=== PATIENT | male | born 1965 | race African-American/Black ===

== ENCOUNTER 2017-01-08 18:09 | Emergency (ER) | payer BC ==
[~2017-01-08] VITALS: Ht 188 cm; Wt 99.8 kg
[2017-01-08 19:17] LABS: URINE SOURCE CLEAN CATCH
[2017-01-08 19:23] LABS: URINE APPEARANCE CLOUDY; URINE BILIRUBIN NEG (NEG); URINE BLOOD 1+ (NEG); URINE COLOR YELLOW; URINE GLUCOSE NEG (NEG); URINE KETONE 1+ (NEG); URINE LEUKOCYTE ESTERASE 2+ (NEG); URINE NITRATE NEG (NEG); URINE PH 5.5 (5-8); URINE PROTEIN 1+ (NEG); URINE SPECIFIC GRAVITY 1.026 (1.003-1.035)
[2017-01-08 19:26] LABS: CULTURE INDICATED? YES; URINE SQUAMOUS EPITHELIAL CELL OCC /[HPF]; UWBCS1 AUWI 50-100 (0-5)
[2017-01-08 19:52] LABS: U HYALINE CASTS AUWI 0-2 /[LPF]; URINE BACTERIA AUWI 1+ (NEGATIVE); URINE TRICHOMONAS PRESENT
[2017-01-13 00:05] LABS: CHLAMYDIA TRACH Not Detected (Not Detected); N GONOR Not Detected (Not Detected)
== END 2017-01-08 20:14 | disposition home or self-care (01) ==
LOC: CED 18:09
PROVIDERS: Emergency Medicine
DX: A59.9 Trichomoniasis, unspecified (principal); J45.909 Unspecified asthma, uncomplicated
CPT/HCPCS: 81003; 87086; 87491; 87591; 99283

== ENCOUNTER 2017-01-18 17:44 | Emergency (ER) | payer BC ==
[~2017-01-18] VITALS: Ht 188 cm; Wt 99.8 kg
[2017-01-18 18:05] LABS: URINE SOURCE CLEAN CATCH
[2017-01-18 18:12] LABS: URINE APPEARANCE CLEAR; URINE BILIRUBIN NEG (NEG); URINE BLOOD TRACE (NEG); URINE COLOR YELLOW; URINE GLUCOSE NEG (NEG); URINE KETONE TRACE (NEG); URINE LEUKOCYTE ESTERASE 2+ (NEG); URINE NITRATE NEG (NEG); URINE PROTEIN NEG (NEG); URINE SPECIFIC GRAVITY 1.027 (1.003-1.035)
[2017-01-18 18:15] LABS: CULTURE INDICATED? YES; URINE BACTERIA AUWI NEG (NEGATIVE); URINE SQUAMOUS EPITHELIAL CELL OCC /[HPF]; UWBCS1 AUWI 25-50 (0-5)
[2017-01-21 11:14] LABS: CHLAMYDIA TRACH Not Detected (Not Detected); N GONOR Not Detected (Not Detected)
== END 2017-01-18 18:51 | disposition home or self-care (01) ==
LOC: CED 17:44 → CFTX 17:44
PROVIDERS: Physician Assistant
DX: A59.03 Trichomonal cystitis and urethritis (principal); J45.909 Unspecified asthma, uncomplicated
CPT/HCPCS: 81003; 87086; 87491; 87591; 99283

== ENCOUNTER 2017-02-03 14:51 | Emergency (ER) | payer BC ==
[~2017-02-03] VITALS: Ht 188 cm; Wt 99.8 kg
[2017-02-03 16:44] LABS: URINE SOURCE CLEAN CATCH
[2017-02-03 16:49] LABS: URINE APPEARANCE CLEAR; URINE BILIRUBIN NEG (NEG); URINE BLOOD NEG (NEG); URINE COLOR YELLOW; URINE GLUCOSE NEG (NEG); URINE KETONE NEG (NEG); URINE LEUKOCYTE ESTERASE NEG (NEG); URINE NITRATE NEG (NEG); URINE PH 5.5 (5-8); URINE PROTEIN NEG (NEG); URINE SPECIFIC GRAVITY 1.028 (1.003-1.035)
[2017-02-03 17:02] LABS: CULTURE INDICATED? NO
== END 2017-02-03 17:25 | disposition home or self-care (01) ==
LOC: CFTX 14:51 → CED 14:51 → CFTX 16:54
PROVIDERS: Physician Assistant Medical
DX: Z00.00 Encounter for general adult medical examination without abnormal findings (principal); J45.909 Unspecified asthma, uncomplicated
CPT/HCPCS: 81003; 99283